=== PATIENT | male | born 1955 | race Caucasian/White ===

== ENCOUNTER 2023-07-24 05:55 | Observation (INO) | payer MEDICARE, OTHER, SELFPAY ==
[2023-07-24] VITALS (13 sets, daily range): BP systolic 111–151; BP diastolic 62–76; PULSE 66–83; RESP 15–28; TEMP 36.1–37; O2SAT 92–99; BMI 30.8; BMI 30.3
--- NOTE | 2023-07-24 06:00 | EKG12_ITS ---
Test Reason : Blood Pressure : / mmHG Vent. Rate : 080 BPM Atrial Rate : 080 BPM P-R Int : 142 ms QRS Dur : 080 ms QT Int : 376 ms P-R-T Axes : 053 011 010 degrees QTc Int : 433 ms Normal sinus rhythm Normal ECG Confirmed by CARRIE LERNER, AMBER ([id number]), editorial project manager JANICE TRONCOSO ([id number]) on 08/05/2023 7:55:27 AM Referred By: Confirmed By:CHRISTOPHER BUTLER MD
--- NOTE | 2023-07-24 06:00 | RAD_ITS ---
INDICATION: chest pain EXAMINATION/TECHNIQUE: X-RAY - XR Chest 1 View AP portable. 6:18 AM COMPARISON: None. FINDINGS: LINES/DEVICES: None. LUNGS: No consolidation. No pneumothorax. MEDIASTINUM: Aorta is atherosclerotic. CARDIAC SILHOUETTE: Not enlarged. BONES AND SOFT TISSUES: No acute abnormalities. RAD/Chest 1 View (Portable) IMPRESSION: No evidence of active intrathoracic disease. Electronically Signed: Ivette Mayfield MD at 6:40 EDT ,
--- NOTE | 2023-07-24 06:20 | EDS_ITS ---
HPI History of Present Illness Chief Complaint: Chest Pain Detail of Chief Complaint: Awoke tonight with left-sided chest pain at 4:30 AM. Informant: patient Onset/Context/Timing Onset: Today and Hours Activity at onset: gradual Timing: Continuous Quality: Positive for Dull Location: Left Chest Current Severity: Mild Maximum Severity: Mild Worsened By: Nothing Relieved By: Nothing Associated Symptoms: Negative for Nausea, Vomiting, Diaphoresis, Dyspnea, Cough, Fever, Lightheadedness, Acid Reflux or Palpitations Narrative Narrative: 68-year-old male history of 30% coronary artery disease from heart cath done at another facility about 5+ years ago. No prior [place] or cardiac surgery. Says tonight he was lying in bed it was asleep and he woke up around 4:30 AM with left-sided chest discomfort. He denies any nausea or diaphoresis. He denies any recent exertional chest pain or significant exertional dyspnea. Prior Similar Symptoms: Yes Recent Illness/Hospitalization: No CVD Risk Factors: Positive for Hypertension and Hypercholesterolemia PE Risk Factors: Negative for Recent Travel/Surgery, Recent Immobilization, Prior DVT or PE, Cancer or OCP + Smoking + >/=35 TAD Risk Factors: Negative for Marfan's Syndrome [facility] Medical History Hernia Hyperlipemia Panic attack Sleep apnea Home Medications aspirin 81 mg tablet,delayed release (Adult Low Dose Aspirin) 81 mg PO DAILY 07/24/23 [History Last Taken Unknown] atorvastatin 40 mg tablet 40 mg PO DAILY 07/24/23 [History Last Taken Unknown] doxycycline hyclate 100 mg capsule 100 mg PO BID 7 days #14 caps 07/24/23 [Rx Last Taken Unknown] esomeprazole magnesium 20 mg capsule,delayed release (Nexium) 20 mg PO DAILY 07/24/23 [History Last Taken Unknown] krill oil 500 mg capsule 350 mg PO DAILY 07/24/23 [History Last Taken Unknown] lisinopril 10 mg tablet 10 mg PO DAILY 07/24/23 [History Last Taken Unknown] vit B complex-vit C #11-calcium 140 mg-dha 10 mg-co Q10 10 mg tablet (Brain Eufzi-WPQ-Pt Q10) 1 tab PO DAILY 07/24/23 [History Last Taken Unknown] Allergy/AdvReac Type Severity Reaction Status Date / Time No Known Allergies Allergy Verified 07/24/23 05:57 Surgical History Hx of appendectomy Social History Smoking Status: Never smoker ROS ROS ED ROS Narrative Chest pain. No recent illness. Review of Systems ROS Unobtainable: Denies due to encephalopathy Constitutional Constitutional ED: Denies chills or fever(s) Eyes Eyes: Reports none ENT ENT ED: Denies ear pain Cardiovascular Cardiovascular: Reports as per HPI and chest pain; Denies palpitations or racing heartbeat Respiratory/Chest Respiratory/Chest: Denies cough or dyspnea Gastrointestinal Gastrointestinal: Denies abdominal pain Genitourinary Genitourinary ED: Denies dysuria or hematuria Musculoskeletal Musculoskeletal: Denies arthralgias or back pain Integumentary Denies abscess Neurologic Neurologic: Denies headache(s) Psychiatric Psychiatric: Denies anxiety Endocrine Endocrinology: Denies cold intolerance Hematologic/Lymphatic Hematologic/Lymphatic: Denies easy bleeding or easy bruising Allergic/Immunologic Allergic/Immunologic ED: Denies mouth swelling, tongue swelling or urticaria EXAM Physical Exam Narrative Exam Narrative: Well-appearing 68-year-old male. Vital signs stable afebrile. Pulse ox 95% on room air no hypoxia. No distress. HEENT exam unremarkable. Neck nontender no JVD. Lungs clear to auscultation bilaterally. Heart regular rhythm rate about 80 no murmur. Chest wall nontender. No signs of trauma. No reproducible pain. Abdomen soft, nontender, nondistended, normal bowel sounds without peritoneal signs. No pulsatile mass. Right upper quadrant is unremarkable. Moving all 4 extremities. Calves are nontender without edema or cords. Normal director of capital giving strength. Normal dorsi plantarflexion. Back unremarkable. Skin no rashes. Neurologically is awake alert with no focal motor deficits. Const Vital Signs: 07/24/23 06:02 07/24/23 06:08 07/24/23 06:08 Temperature 97.3 F L Temperature Source Temporal Pulse Rate 81 Respiratory Rate 15 Respiratory Effort Normal Respiratory Pattern Normal Blood Pressure 131/71 H Blood Pressure Mean 91 Pulse Ox 95 96 Oxygen Delivery Method Room Air Room Air Positive well nourished and well developed; Negative for cachectic, contractures or unkempt General Appearance ED: well developed and NAD; Negative for unkempt, cachectic, contractures or pallor Nutritional Appearance: Negative for cachectic HEENT Reports moist mucous membranes normocephalic and atraumatic; Negative for trauma or tenderness Eyes PERRL and EOMs intact bilaterally General Eye ED: Negative for pale conjunctiva or scleral icterus Neck no lymphadenopathy, supple and no JVD General: Negative for tenderness Chest Wall inspection of chest normal and palpation of chest normal Chest: Negative for tenderness Resp normal respiratory effort and clear to auscultation bilaterally Effort and Inspection: Negative for respiratory distress Auscultation: Negative for rales, rhonchi or wheezes Cardio regular rate, regular rhythm, S1 normal heart sound, S2 normal heart sound and no murmurs Rate: Negative for bradycardia or tachycardic GI normal to inspection, nondistended, normoactive bowel sounds, soft to palpation, non-tender, non-distended and no masses Auscultation: Negative for hyperactive bowel sounds Palpation: Negative for splenomegaly Rectal Exam: Negative for heme negative stool Back/Spine no CVA tenderness and no thoracic nor lumbar tenderness General Back: Negative for CVA tenderness Cervical Spine: Negative for cervical spine tenderness Extremity normal to inspection General Extremety ED: Negative for edema or pulses abnormal General Extremity: Negative for edema or pulses abnormal Neuro oriented x3 and CN's II-XII intact bilaterally Sensorium / Orientation: awake, alert, oriented to person, oriented to place and oriented to time; Negative for confused, lethargic or stuporous Motor Exam: strength 5/5 throughout Psych mental status grossly normal Appearance: Negative for unkempt Attitude: No agitated Mood & Affect: Negative for depressed, anxious or tearful Skin no rashes or lesions noted and no wounds General Skin Exam: Negative for jaundice or pallor Rashes: No rashes noted Trauma: Negative for abrasion or laceration Heart Score History: Moderately Suspicious ECG: Normal Age: >/= 65 years Risk Factors: 1 or 2 Risk Factors Troponin: </= Normal Limit Score: 4 MDM MDM MDM Narrative Medical decision making narrative: 68-year-old male awoke tonight from sleep with left-sided chest pain that is currently not reproducible. Denies recent exertional chest pain or exertional dyspnea. Brought in by squad. Patient undergo cardiac work-up. He has no history or risk factors for DVT or PE. This is not reproducible pain. Is not pleuritic. He is having no shortness of breath. Repeat exam patient is doing well at 7:40 AM. He has had intermittent chest pain since he has been here. His work-up is currently negative. There is no reproducible pain. He has known coronary disease and that was from a heart cath at least 5 years ago maybe longer. He has had no recent stress test. Patient will be admitted for chest pain of uncertain etiology. Dru exam patient did have a tick medial to his left chest wall nipple. I removed it was not engorged. There was no blood or bleeding. Nurses then cleaned off the site. Patient has had recent tick bites while hunting. He will be placed on prophylaxis for try to prevent Lyme disease. He has no rash. He will be admitted for chest pain of uncertain etiology and have stress test. I discussed all this with the hospitalist. History & Record Review Discussion w/independent historian: Patient Additional record(s) reviewed:: No prior records Lab Data Attestation: I reviewed the patient's lab results. Lab results narrative: CBC shows a white count 11.7. H&H 15 and 45. Platelets 276. Electrolytes show a gap of 4 normal BUN 15 creatinine 0.9. Glucose 107. Initial troponin is 10. Chest x-ray is unremarkable. Labs: Laboratory Results - last 24 hr 07/24/23 06:05 WBC 11.7 H RBC 4.83 Hgb 15.2 Hct 45.4 MCV 94.0 MCH 31.5 MCHC 33.5 RDW Std Deviation 45.8 H RDW Coeff of [place] 13.2 Plt Count 276 MPV 11.6 Immature Gran % (Auto) 0.200 Neut % (Auto) 63.5 Lymph % (Auto) 23.4 [place] % (Auto) 8.7 Eos % (Auto) 3.2 Baso % (Auto) 1.0 Absolute Neuts (auto) 7.4 Absolute Lymphs (auto) 2.73 Nucleated RBC % 0 Sodium 141 Potassium 3.6 Chloride 105 Carbon Dioxide 32.0 Anion Gap 4 L BUN 15 Creatinine 0.92 Estim Creat Clear Calc 77.14 Est GFR (MDRD) Af Amer 105 Est GFR (MDRD) Non-Af 87 BUN/Creatinine Ratio 16.4 Glucose 107 H Calcium 9.3 Troponin I High Sens 10 Radiography Chest X-Ray - ED: 1 View and Read by ED Physician Diagnostic Testing: Clinical Impression(s) from Imaging Studies Chest X-Ray 07/24/23 06:00 IMPRESSION: No evidence of active intrathoracic disease. Electronically Signed: Ivette Mayfield MD at 6:40 EDT , Rhythm Strip Rhythm Strip: Sinus Rhythm Rate: 80 Ectopy: None EKG Initial EKG: Attestation: I personally reviewed and interpreted this EKG as follows: Interpretation: Sinus Rhythm and No Acute Injury Pattern Comments: Normal sinus rhythm rate of 80 no acute signs of [place] or ischemia. No ST elevation nor any depression. Prior EKG tracings: not available for review Prior: No Prior Discharge Plan Triage Chief Complaint: Chest Pain ED Provider: Diego Lofton Dx/Rx/DC Orders Clinical Impression: History of essential hypertension, History of coronary artery disease, Chest pain, Tick bite Primary Care Provider: Abdifatah Ackerman Disposition Disposition: Acute Care Hospital [facility]
[2023-07-24 06:30] LABS: Absolute Lymphocyte Count 2.73 X10^3/uL (0.83-4.51); Absolute Neutrophil Count 7.4 X10^3/uL (2.0-7.7); Basophil# 0.12 X10^3/uL; Eosinophil# 0.37 X10^3/uL; Eosinophils% 3.2 % (0-5); Hematocrit 45.4 % (40-54); Hemoglobin 15.2 g/dL (13.0-16.5); Lymphocyte # 2.73 X10^3/ul (0.83-4.51); Lymphocyte % 23.4 % (19-41); Mean Corp Hgb Conc 33.5 g/dL (32-36); Mean Corpuscular Hgb 31.5 pg (27.0-32.0); Mean Platelet Vol. 11.6 fl (6.2-12.0); Monocyte# 1.01 X10^3/uL; Monocyte% 8.7 % (0-10); NRBC Flagged by Analyzer 0 % (0-5); Neutrophil % 63.5 % (47-70); Platelet Count 276 K/mm3 (150-450); RBC Distribution Width CV 13.2 % (11.6-14.6); RBC Distribution Width SD 45.8 fl (35.1-43.9); Red Blood Count 4.83 M/mm3 (4.6-6.2); White Blood Count 11.7 K/mm3 (4.4-11.0)
[2023-07-24 06:47] LABS: Anion Gap 4 (5-15); BUN 15 mg/dL (7-18); BUN/Creat Ratio 16.4 RATIO (10-20); Calcium,Total 9.3 mg/dL (8.5-10.1); Chloride 105 mmol/L (98-107); Creatinine, Serum 0.92 mg/dL (0.70-1.30); EST Glomerular Filtration Rate 87 mL/min (>60); Est Glom Filt Rate - Afr Amer 105 mL/min (>60); Estimated Creatinine Clearance 77.14 ml/min; Glucose 107 mg/dL (74-106); Potassium 3.6 mmol/L (3.5-5.1); Sodium Level 141 mmol/L (136-145); Troponin-I HS (w/2H Reflex) 10 pg/mL (3.0-78.0)
--- NOTE | 2023-07-24 07:50 | ED.RN ---
PT CALLS OUT, STATES HE HAS A TICK ON HIS NIPPLE. DR. HANKS AT BEDSIDE REMOVES TICK.
--- NOTE | 2023-07-24 07:50 | PCM.HP.STD ---
HPI - General General Date of Admission: 07/24/23 Date of Service: 07/24/23 Chief Complaint: chest pain HPI Narrative TRISHA TY, is a 68 M with a PMH as outlined who presents via the ED on 07/24/2023 with a complaint of chest pain. Chest pain woke him up from bed this morning at ~ 4:30am with a complaint of chest pain. It was left sided, with no aggravating factors. He had no associated shortness of breath, dizziness, lightheadedness, nausea or any other symptoms. HE had a cath some years ago and says it showed 30% blockage in one vessel. He has been hunting a lot and has received several tick bites. Review of systems is otherwise negative. Vitals in the ED were temp of 97.3F, with RR of 15 and pulse ox of 95% on room air. CBC showed wbc of 11.7, hb of 15.2, platelet count of 276. Chemistry was unremarkable. Initial troponin was negative. CXR showed no evidence of any cardiopulmonary process. He is being admitted to be managed for chest pain to rule out ACS. [facility] Medical History Hernia Hyperlipemia Panic attack Sleep apnea Home Medications aspirin 81 mg tablet,delayed release (Adult Low Dose Aspirin) 81 mg PO DAILY 07/24/23 [History Last Taken Unknown] atorvastatin 40 mg tablet 40 mg PO DAILY 07/24/23 [History Last Taken Unknown] doxycycline hyclate 100 mg capsule 100 mg PO BID 7 days #14 caps 07/24/23 [Rx Last Taken Unknown] esomeprazole magnesium 20 mg capsule,delayed release (Nexium) 20 mg PO DAILY 07/24/23 [History Last Taken Unknown] krill oil 500 mg capsule 350 mg PO DAILY 07/24/23 [History Last Taken Unknown] lisinopril 10 mg tablet 10 mg PO DAILY 07/24/23 [History Last Taken Unknown] metoprolol succinate 50 mg tablet,extended release 24 hr 50 mg PO DAILY #30 tabs 07/24/23 [Rx Last Taken Unknown] nitroglycerin 0.4 mg sublingual tablet 0.4 mg sublingual Q5M PRN Cardiac/Chest Pain #30 tabs 07/24/23 [Rx Last Taken Unknown] vit B complex-vit C #11-calcium 140 mg-dha 10 mg-co Q10 10 mg tablet (Brain Suuvv-JYC-Uj Q10) 1 tab PO DAILY 07/24/23 [History Last Taken Unknown] Allergy/AdvReac Type Severity Reaction Status Date / Time No Known Allergies Allergy Verified 07/24/23 05:57 Surgical History Hx of appendectomy Social History Smoking Status: Never smoker ROS Constitutional Constitutional: Denies anorexia, chills, fatigue, fever(s), malaise or weakness Eyes Eyes: Denies change in vision ENT HEENT: Denies dysphagia, headache(s), sore throat or throat swelling Cardiovascular Cardiovascular: Reports chest pain; Denies claudication, orthopnea, palpitations, paroxysmal nocturnal dyspnea or syncope Respiratory/Chest Respiratory/Chest: Denies cough, shortness of breath at rest or shortness of breath with exertion Gastrointestinal Gastrointestinal: Denies abdominal pain, constipation, diarrhea, nausea or vomiting Musculoskeletal Musculoskeletal: Denies back pain or extremity pain Neurologic Neurologic: Denies confusion, dizziness, focal weakness, headache(s) or lack of coordination Psychiatric Psychiatric: Denies anxiety or depression Vital Signs Vital Signs Vital Signs: 07/24/23 06:02 07/24/23 06:08 07/24/23 06:08 Temperature 97.3 F L Temperature Source Temporal Pulse Rate 81 Respiratory Rate 15 Respiratory Effort Normal Respiratory Pattern Normal Blood Pressure 131/71 H Blood Pressure Mean 91 Pulse Ox 95 96 Oxygen Delivery Method Room Air Room Air Weight Weight: 214 lb 12.8 oz Body Mass Index (BMI) 30.8 Physical Exam Const alert, oriented x3 and no apparent distress General Appearance: cooperative HEENT normocephalic, head/scalp atraumatic, moist oral mucous membranes and oropharynx normal Neck no lymphadenopathy, supple and no JVD Lymph Lymphatic: no lymphadenopathy noted and no lymphedema noted Resp normal respiratory effort, normal air movement and clear to auscultation bilaterally Cardio regular rate, regular rhythm, S1 normal heart sound, S2 normal heart sound and no murmurs GI normal to inspection, nondistended, normoactive bowel sounds, soft to palpation, non-tender and non-distended Extremity normal capillary refill, no clubbing, cyanosis or edema and no calf tenderness Skin Skin Narrative: has erythematous papular lesions on flank, near left nipple and back from tick bites. No evidence of target lesions General Skin Exam: no breakdown Neuro CN's II-XII intact bilaterally, no focal motor deficits, no sensory deficits noted and deep tendon reflexes 2+ bilaterally Motor Exam: strength 5/5 throughout and general weakness Psych thought process normal, cooperative and affect normal Appearance: appropriate Results Lab / Micro Data 07/24/23 06:05 07/24/23 06:05 Labs: Laboratory Results - last 24 hr 07/24/23 06:05: WBC 11.7 H, RBC 4.83, Hgb 15.2, Hct 45.4, MCV 94.0, MCH 31.5, MCHC 33.5, RDW Std Deviation 45.8 H, RDW Coeff of [place] 13.2, Plt Count 276, MPV 11.6, Immature Gran % (Auto) 0.200, Neut % (Auto) 63.5, Lymph % (Auto) 23.4, [place] % (Auto) 8.7, Eos % (Auto) 3.2, Baso % (Auto) 1.0, Absolute Neuts (auto) 7.4, Absolute Lymphs (auto) 2.73, Nucleated RBC % 0, Sodium 141, Potassium 3.6, Chloride 105, Carbon Dioxide 32.0, Anion Gap 4 L, BUN 15, Creatinine 0.92, Estim Creat Clear Calc 77.14, Est GFR (MDRD) Af Amer 105, Est GFR (MDRD) Non-Af 87, BUN/Creatinine Ratio 16.4, Glucose 107 H, Calcium 9.3, Troponin I High Sens 10 Rhythm Strip Rhythm Strip: Sinus Rhythm Rate: 80 Ectopy: None Radiology Impression Chest X-Ray 07/24/23 06:00 IMPRESSION: No evidence of active intrathoracic disease. Electronically Signed: Ivette Mayfield MD at 6:40 EDT , Assessment & Plan Assessment/Plan (1) Chest pain: QUALIFIERS: Chest pain type: unspecified Qualified Code(s): R07.9 - Chest pain, unspecified (2) Tick bite: PLAN: Plan #Chest pain to rule out ACS Admit to PCU Cycle troponins. Initial troponin is negative. Sublingual nitroglycerin as needed. P.o. aspirin 81 mg daily. For stress test if troponins are negative. Of note, patient did have a stress test which was read as abnormal and showed [address] depression in the recovery phase. The EF was preserved and nuclear images were unremarkable. He also had nonsustained V. tach with exercise.. Cardiology was therefore consulted and patient had a cardiac cath which showed 40% blockage in the LAD. Continue aspirin 81 mg daily. #Nonsustained V. tach: Had nonsustained V. tach during the stress test. Per cardiology recommendations, patient started on metoprolol. Potassium within normal limits. #Tick bites Patient is an avid [place] and says he recently came home from [place]. Whilst hunting he noticed the tick bite buried in his left nipple which was pulled out. When he came home his also pulled off 3 of her tics. He does not have any classic target lesion. He states the tics were not engorged. However since it is not clear how long the ticks were attached for, it is prudent to give patient prophylaxis for Lyme disease. Patient given p.o. doxycycline 200 mg x 1 in the ED. He was also given a script from the ED for Po doxycycline 100mg bid x 7 days. presumably as treatment for presumptive Lyme disease based on his duration of exposure and number of tick bites. #Type 2 diabetes mellitus: On metformin. Stable. #Hypertension: On lisinopril. Metoprolol added on on account of nonsustained V. tach. DVT prophylaxis: SCDs Patient remained stable after cardiac cath and per discussion with cardiology, was discharged home on aspirin, statin and metoprolol. He is to follow up wiht his PCP and cardiology within the next 1-2 weeks. This note serves as both an admit H&P and a discharge summary. Charges/Coding Visit Charges OBSV E&M: 42194 Observ/hosp same date L3
--- NOTE | 2023-07-24 07:52 | NURSING ---
DR IHSAN HANKS
--- NOTE | 2023-07-24 08:07 | NURSING ---
PCU OBS BRYAM CP OF UNCERTAIN CAUSE, CAD HX
[2023-07-24 08:25] LABS: Reflex Troponin-HS? (from REC) Y
[2023-07-24] MEDS: Doxycycline 100 MG CAPSULE PO (08:26)
[2023-07-24 08:50] LABS: Troponin-I HS 10 pg/mL (3.0-78.0)
[2023-07-24] MEDS: Pantoprazole Sodium 20 MG Tablet PO (11:20)
[2023-07-24] MEDS: Lisinopril 10 MG Tablet PO (11:20)
--- NOTE | 2023-07-24 11:58 | STRESSREP ---
Stress Test Report Date: 07/24/2023 Procedure: Exercise tolerance test/imaging study Indications: Chest pain Consent: Per the patient Procedure: The patient exercised on a Bello protocol for [4 minutes and 20 seconds] achieving a peak heart rate of 157 bpm (104% predicted maximal heart rate) with a peak blood pressure 210/88 mmHg and a peak MET capacity of 7 METs. The baseline ECG demonstrated [normal sinus rhythm]. The peak exercise ECG demonstrated sinus tachycardia with upsloping ST depressions in the inferior and lateral leads. EKG during recovery revealed about [address] depressions in the inferior and lateral leads With exercise patient had short runs of nonsustained V. tach. The functional capacity was considered normal for age. There was [no complaint of chest discomfort during exercise or recovery]. The examination was discontinued secondary to achieving target heart rate. Impression: 1. Technically adequate (percent predicted maximal heart rate greater than 85%) exercise tolerance test 2. Stress test is positive for exercise-induced EKG changes of ischemia 3. The test test is negative for exercise-induced chest pain 4. Functional capacity is normal for age 5. Nuclear images pending Myocardial perfusion imaging study: Technique: The patient was injected with 11.4 mCi of technetium 99m Cardiolite and subsequently rest SPECT Cardiolite nuclear imaging was obtained in the horizontal long, vertical long, and short axis views. The patient exercised on a Bello protocol. Please see above for details. The patient was injected with 35.4 mCi of technetium 99m Cardiolite and subsequently stress SPECT Cardiolite nuclear imaging was obtained in the horizontal long, vertical long, and short axis views. A gated Cardiolite study at peak stress was obtained. Interpretation: Rest and stress SPECT Cardiolite nuclear imaging status post realignment, normalization, and attenuation correction, demonstrates no evidence of significant ischemia or infarction. The gated Cardiolite study demonstrates no significant regional wall motion abnormalities. The reported LVEF is 66%. Impression: 1. There is no evidence of significant ischemia or infarction. 2. The gated Cardiolite study reports an LVEF of 66%. This note was generated with [employer] software. It may contain incorrect words, spelling, and punctuation that were not noted in checking the note before signing.
[2023-07-24 12:50] LABS: Troponin-I HS 12 pg/mL (3.0-78.0)
--- NOTE | 2023-07-24 13:21 | CON.PCM.CA_ITS ---
Assessment & Plan Assessment/Plan (1) Chest pain: QUALIFIERS: Chest pain type: unspecified Qualified Code(s): R07.9 - Chest pain, unspecified PLAN: Abnormal stress test. We will proceed with coronary angiography. Patient understands the risks and benefits and wishes to proceed. HPI Consult Data Date of Consult: 07/24/23 HPI Narrative Reason for Consultation: Chest pain HPI Narrative: TRISHA TY, is a 68 M who presents with left-sided chest pain that woke him up from sleep. Chest pain was at rest and did not get worse with exertion. 2 sets of troponin were negative. Patient has been also having epigastric discomfort for about 2 weeks. He underwent stress testing today which revealed about [address] depression in the recovery phase. Nuclear images were unremarkable. EF is preserved. Patient also had nonsustained V. tach with exercise. Review of systems: All systems reviewed. All else is negative except that in HPI [facility] Medical History Hernia Hyperlipemia Panic attack Sleep apnea Home Medications aspirin 81 mg tablet,delayed release (Adult Low Dose Aspirin) 81 mg PO DAILY 07/24/23 [History Last Taken Unknown] atorvastatin 40 mg tablet 40 mg PO DAILY 07/24/23 [History Last Taken Unknown] doxycycline hyclate 100 mg capsule 100 mg PO BID 7 days #14 caps 07/24/23 [Rx Last Taken Unknown] esomeprazole magnesium 20 mg capsule,delayed release (Nexium) 20 mg PO DAILY 07/24/23 [History Last Taken Unknown] krill oil 500 mg capsule 350 mg PO DAILY 07/24/23 [History Last Taken Unknown] lisinopril 10 mg tablet 10 mg PO DAILY 07/24/23 [History Last Taken Unknown] vit B complex-vit C #11-calcium 140 mg-dha 10 mg-co Q10 10 mg tablet (Brain Dqtym-RGV-Wq Q10) 1 tab PO DAILY 07/24/23 [History Last Taken Unknown] Allergy/AdvReac Type Severity Reaction Status Date / Time No Known Allergies Allergy Verified 07/24/23 05:57 Surgical History Hx of appendectomy Social History Smoking Status: Never smoker Physical Exam Const alert and oriented x3 HEENT normocephalic Eyes no scleral icterus Resp normal respiratory effort Cardio regular rate Psych mental status grossly normal Risk Stratification Risk Stratification Applicable: No Charges/Coding Visit Charges Inpatient E&M: 56988 Init Hosp L2 Objective Data Vital Signs: Vital Signs Temp Pulse Resp BP Pulse Ox O2 Del Method 96.9 F L 77 15 151/76 H 99 Room Air 07/24/23 09:29 07/24/23 09:29 07/24/23 09:29 07/24/23 09:29 07/24/23 09:29 07/24/23 09:29 Oxygen Delivery Method Room Air Weight: 211 lb 3.245 oz Body Mass Index (BMI) 30.3 Lab / Micro Data 07/24/23 06:05 07/24/23 06:05 Labs: Laboratory Results - last 24 hr 07/24/23 06:05: WBC 11.7 H, RBC 4.83, Hgb 15.2, Hct 45.4, MCV 94.0, MCH 31.5, MCHC 33.5, RDW Std Deviation 45.8 H, RDW Coeff of [place] 13.2, Plt Count 276, MPV 11.6, Immature Gran % (Auto) 0.200, Neut % (Auto) 63.5, Lymph % (Auto) 23.4, [place] % (Auto) 8.7, Eos % (Auto) 3.2, Baso % (Auto) 1.0, Absolute Neuts (auto) 7.4, Absolute Lymphs (auto) 2.73, Nucleated RBC % 0, Sodium 141, Potassium 3.6, Chloride 105, Carbon Dioxide 32.0, Anion Gap 4 L, BUN 15, Creatinine 0.92, Estim Creat Clear Calc 77.14, Est GFR (MDRD) Af Amer 105, Est GFR (MDRD) Non-Af 87, B UN/Creatinine Ratio 16.4, Glucose 107 H, Calcium 9.3, Troponin I High Sens 10 07/24/23 08:21: Troponin I High Sens 10 07/24/23 12:20: Troponin I High Sens 12 Rhythm Strip Rhythm Strip: Sinus Rhythm Rate: 80 Ectopy: None Cardiology Labs/Tests 07/24/23 06:05: WBC 11.7 H, RBC 4.83, Hgb 15.2, Hct 45.4, MCV 94.0, MCH 31.5, MCHC 33.5, Plt Count 276, MPV 11.6, Immature Gran % (Auto) 0.200, Neut % (Auto) 63.5, Lymph % (Auto) 23.4, [place] % (Auto) 8.7, Eos % (Auto) 3.2, Baso % (Auto) 1.0, Absolute Neuts (auto) 7.4, Nucleated RBC % 0, Sodium 141, Potassium 3.6, Chloride 105, Carbon Dioxide 32.0, Anion Gap 4 L, BUN 15, Creatinine 0.92, Est GFR (MDRD) Af Amer 105, Est GFR (MDRD) Non-Af 87, BUN/Creatinine Ratio 16.4, Glucose 107 H, Calcium 9.3 Rhythm: EKG: ECHO: Stress Test: Cardiac Cath: PCI: CT Surgery: Holter monitor: EPS: PPM: CXR: Chest CT Scan: Radiography Diagnostic Testing: Radiology Impression Chest X-Ray 07/24/23 06:00 IMPRESSION: No evidence of active intrathoracic disease. Electronically Signed: Ivette Mayfield MD at 6:40 EDT ,
[2023-07-24] MEDS: 0.9% Normal Saline (1000mL) 1,000 ML 100 ML IV (15:16)
--- NOTE | 2023-07-24 15:48 | PCM.DC ---
Discharge Instructions Diet Discharge Diet: Low fat / Low cholesterol Activity Discharge Activity: Return to Normal Activity Weight Bearing Status: Weight bearing as tolerated Dressing / Incision Call your doctor if you observe: Fever of 101 or Higher, Shortness of breath, Dizziness, Swelling in the ankles and Chest pain Follow Up Care Test Results: Test results from this visit will be discussed in further detail at your follow-up appointment, if applicable. Discharge Plan Admission Admit Date/Time: 07/24/23 08:26 Primary Reason for Your Visit: chest pain Attending Provider: Marie Armenta Primary Care Provider: Abdifatah Ackerman Instructions Patient Instructions: ED Chest Pain, Noncardiac Discharge Orders/Prescriptions Prescriptions: New doxycycline hyclate 100 mg capsule 100 mg PO BID 7 Days Qty: 14 0RF metoprolol succinate 50 mg Tablet Extended Release 24 Hr 50 mg PO DAILY Qty: 30 2RF nitroglycerin 0.4 mg Tablet, Sublingual 0.4 mg sublingual Q5M PRN (Reason: Cardiac/Chest Pain) Qty: 30 0RF Continued lisinopril 10 mg tablet 10 mg PO DAILY atorvastatin 40 mg tablet 40 mg PO DAILY esomeprazole magnesium [Nexium] 20 mg capsule,delayed release(DR/EC) 20 mg PO DAILY aspirin [Adult Low Dose Aspirin] 81 mg tablet,delayed release (DR/EC) 81 mg PO DAILY krill oil 500 mg capsule 350 mg PO DAILY Brain Plikv-THG-Ym Q10 140-10-10 mg tablet 1 tab PO DAILY Referrals / Follow Up: Benny Henson MD [Med Staff - Active Staff] - Within 2 Weeks Abdifatah Ackerman MD [Primary Care Provider] - Within 1 Week [facility] Doctor,Out of [Non-Staff] - Disposition Disposition (needs filled in before D/C Order can be placed): Home, Self Care
[2023-07-24] MEDS: Metoprolol(XL)Succ 50 MG Tablet PO (15:53)
[2023-07-24 18:34] LABS: Bedside Glucose 127 mg/dL (74-106)
[2023-07-25 09:08] LABS: Lyme Scn Total Ab w/Rflx Negative (Negative)
--- NOTE | 2023-07-25 13:32 | CL.D_ITS ---
Patient Name: TRISHA TY Study Date: 07/24/2023 Performing: Wiley Andino MD Ht: 70 inches 177.8 cm : 1955 Wt: 211.5 lbs 95.8 kg Age: 68 Gender: male BSA: 2.14 PROCEDURE(S) PERFORMED [id number])LHC/COR/LV CLINICAL PROFILE AND INDICATIONS Indications: Suspected CAD Heart Failure: None Stress/Imaging Date: 07/24/23Stress Test with SPECT MPI: Positive Intermediate Risk CONCLUSIONS Non obstructive coronary arteries. Preserved EF. No significant or MR RECOMMENDATIONS DESCRIPTION OF PROCEDURE The patient arrived to the procedure lab. The risks and benefits of the procedure as well as a full description of our services here and current unavailability of surgical backup were fully explained to the patient and/or their significant other prior to the catheterization. The Timeout was completed, verifying the correct patient and procedure. The patient's procedural site was prepped and draped in the usual fashion. Local anesthetic was given subcutaneously to right radial region with Lidocaine 2%. Using a modified Seldinger technique, arterial access was obtained via the right radial artery, a 6Fr sheath was inserted. Left Coronary Artery selective angiography was performed in multiple views using a 5 Fr. JL3.5 catheter. Left Ventriculography was performed in DAVIS projection using a 5 Fr. JR 4.0. LV to AO pullback pressures were then recorded. Right Coronary Artery selective angiography was then performed in multiple views using a 5 Fr. JR 4 catheter.The arterial sheath was pulled and a TR Band was applied for hemostasis CORONARY ANGIOGRAPHY DOMINANCE: Left Dominant LEFT HEART ASSESSMENT Left Ventricular Ejection Fraction: by LV Gram 60 % Normal LV wall motion LEFT MAIN: Mild luminal irregularities LEFT ANTERIOR DESCENDING ARTERY: MID LAD: 40 % Stenosis CIRCUMFLEX ARTERY: Mild luminal irregularities RIGHT CORONARY ARTERY: Mild luminal irregularities VALVE FINDINGS: No Aortic Valve Stenosis No Mitral Insufficiency COMPLICATIONS No Complications PROCEDURE MEDICATIONS Fentanyl 50 mcg IV Versed 1 mg IV Versed 1 mg IV Oxygen: 2 L/min via nasal cannula Baby Aspirin (81mg) 1 Tabs PO @ 07/24/2023 13:21:56 SUMMARY OF HEMODYNAMIC DATA Time AIR REST ECG 13:19:20 AO 103/71 (87) SA 13:42:39 LV 122/-4, 5 13:48:05 LV 124/-6, 6 13:48:11 LV 121/-5, 5 13:48:49 LVp 84/-2, 9 13:48:57 AOp 103/56 (78) 13:49:02 Signed By Wiley Andino MD On 07/25/2023 13:32:20 Wiley Andino MD
== END 2023-07-24 16:59 | disposition home or self-care (01) ==
LOC: ED 07:43 → PCU 08:14
PROVIDERS: Admitting Provider Student in an Organized Health Care Education/Training Program; Emergency Provider Emergency Medicine; PCP Family Medicine; Visit Provider Student in an Organized Health Care Education/Training Program
DX: I25.10 Atherosclerotic heart disease of native coronary artery without angina pectoris (principal); I47.20 Ventricular tachycardia, unspecified; E11.9 Type 2 diabetes mellitus without complications; R07.89 Other chest pain; E78.00 Pure hypercholesterolemia, unspecified; I10 Essential (primary) hypertension; Z79.82 Long term (current) use of aspirin; Z79.899 Other long term (current) drug therapy; G47.30 Sleep apnea, unspecified; S20.369A Insect bite (nonvenomous) of unspecified front wall of thorax, initial encounter; W57.XXXA Bitten or stung by nonvenomous insect and other nonvenomous arthropods, initial encounter; Y93.89 Activity, other specified; Z79.84 Long term (current) use of oral hypoglycemic drugs
CPT/HCPCS: 36415; 71045; 78452; 80048; 82962; 84484; 85025; 86618; 93005; 93017; 93458; 99152; 99153; 99221; 99285; A9500; J7030; J7040; Q9967; A4216; C1769; C1894; G0378